=== PATIENT | female | born 1995 | race Caucasian/White ===

== ENCOUNTER 2019-01-01 12:18 | Observation (INO) ==
[2019-01-01] MEDS ORDERED: Isovue-370 500 ML BOTTLE IVP ONE (12:40)
[2019-01-01] MEDS ORDERED: Aminoglycoside Consult 1 EACH MC ONE (13:14)
[2019-01-01] MEDS ORDERED: Piperacillin/Tazobactam 3.375 GM in 0.9 % Sodium Chloride Mini Bag 100 ML IVPB ONE (13:41)
--- NOTE | 2019-01-01 13:44 | Emergency Department Note ---
Disposition Clinical Impression: Infectious tenosynovitis of left wrist extensor, Cellulitis of left arm Disposition: Admitted As Inpatient Condition: Fair Referrals: NONE,PCP [Primary Care Provider] - Forms: ED Satisfaction Letter Time of Disposition: 14:40 Extremity Problem HPI - General Chief complaint: ED Extremity Problem,Nontraumatic Stated complaint: Arm Pain Time Seen by Provider: 01/01/19 12:24 Source: patient, EMS, other Mode of arrival: EMS Limitations: no limitations Nursing Notes Reviewed: Yes Vital Signs Reviewed: Yes - History of Present Illness Pt Subjective Complaint: extremity pain, extremity swelling, joint swelling, joint pain Onset (ago): day(s) (4) Consistency: constant Injury Location: left, upper extremity Pain Scale: 6 Quality: stabbing, aching, sharp Radiation: proximal (from finger tips to shoulder but mostly around the wrist) Improves with: immobilization Worsens with: range of motion, palpation, use, other (any movement) Associated symptoms: Reports: myalgias, arthralgias, change in appearance, swelling. Denies: chest pain, shortness of breath, abdominal pain, back pain, bowel/bladder symptoms, fever, rash, redness Context: other (IVDA) - Related Data Previous Rx's Medication Instructions Recorded Diclofenac Sodium [Voltaren] 50 mg PO Q8HR #21 tablet. 12/29/18 Allergies Allergy/AdvReac Type Severity Reaction Status Date / Time tramadol Allergy Anaphylaxis Verified 12/29/18 19:49 All systems ED: reviewed and negative except as stated. Review of Systems: As Per HPI Constitutional: Denies: fever, chills, weakness, night sweats Cardiovascular: Denies: chest pain, palpitations Gastrointestinal: Denies: abdominal pain, nausea, vomiting Musculoskeletal: Reports: as per HPI, joint swelling, arthralgia. Denies: back pain, neck pain Integumentary: Denies: rash, lesions, pruritus Neurological: Denies: headache, weakness, numbness, paresthesias Hematological/Lymphatic: Denies: easy bleeding, easy bruising, lymphadenopathy Past Medical History - Past Medical History Attestation: Yes The following information was validated with the patient. Source: patient Medical history: Reports: hepatitis, IV drug use, kidney stones, migraine Surgical history: Reports: non-contributory Psychiatric history: Reports: no psych history NORMALIZER history: Reports: no NORMALIZER history - Social History Smoking Status: Current every day smoker Smokeless Tobacco Status: No Alcohol use: Reports: none Drug use: Reports: opiates, methamphetamine, IV Drug Use Physical Exam - General Limitations: no limitations General appearance: alert, other (agitated and appears to be in pain) - Head Head exam: atraumatic, normocephalic, normal inspection - Eye Eye exam: Present: normal appearance, PERRL. Absent: scleral icterus, conjunctival injection, miosis, mydriasis, periorbital swelling - ENT ENT exam: normal oropharynx, mucous membranes moist - Neck Neck exam: Present: normal inspection, trachea midline. Absent: meningismus - Expanded Neck Exam Neck exam focused ED: Absent: JVD - Respiratory Respiratory exam: Present: normal lung sounds bilaterally. Absent: respiratory distress, wheezes, stridor - Cardiovascular Cardiovascular exam: Present: regular rate, normal rhythm, normal heart sounds. Absent: systolic murmur, diastolic murmur - Extremities Exam Extremities exam: Present: normal capillary refill - Expanded Upper Extremity Exam Shoulder exam: Present: normal inspection. Absent: full ROM, tenderness, swelling, erythema Arm exam: Present: normal inspection, tenderness. Absent: swelling, ecchymosis, deformity, erythema Elbow exam: Absent: full ROM, tenderness, swelling, ecchymosis, deformity, erythema, tenderness over radial head Forearm/Wrist exam: Present: tenderness, swelling. Absent: normal inspection, full ROM, erythema Hand exam: Present: tenderness, swelling. Absent: normal inspection, full ROM, ecchymosis, erythema Neuromotor exam: Normal: wrist extension, thumb opposition, thumb IP flexion, thumb adduction, fingers 2-5 abduction Neurosensory exam: Normal: radial nerve, ulnar nerve Hand tendon exam: Normal: flexor digitorum profundus (location), flexor digitorum superficialis (location), extensor tendon (location) Vascular exam: Normal: capillary refill, radial pulse, ulnar pulse - Neurological Exam Neurological exam: Present: alert, oriented X3, CN II-XII intact. Absent: motor sensory deficit - Psychiatric Psychiatric exam: Present: normal affect, normal mood - Skin Skin exam: Present: warm, dry, intact, normal color Course Course Narrative: Patient with history of IV drug use was sent here from [facility] for evaluation of left upper extremity abnormality. She has diffuse edema and increased warmth along with exquisite tenderness to light palpation of the left upper extremity. It is primarily from the hand to the elbow. She has severe pain with slight passive or active range of motion of the fingers or wrist. She is able to tolerate movement of the elbow and shoulder. She has low-grade fever and is mildly agitated. She did allow me to palpate radial and ulnar pulses. Both are present and normal. Labs were already obtained at [place]. Blood cultures [address] of the upper extremity with IV contrast has been ordered. Vancomycin and Zosyn ordered as well. CT has been read by the radiologist as cellulitis and tenosynovitis most likely infectious. Ortho paged. Case discussed with . He has reviewed the CT images and lab findings. He recommends admission to the hospitalist. He will consult. Case discussed with the hospitalist. Patient has been accepted. Vital Signs Temperature 98.9 F 01/01/19 12:39 Pulse Rate 100 01/01/19 12:39 Respiratory Rate 15 01/01/19 12:39 Blood Pressure 107/73 01/01/19 12:39 O2 Sat by Pulse Oximetry 100 01/01/19 12:39 Temperature 98.9 F 01/01/19 12:39 Pulse Rate 100 01/01/19 12:39 Respiratory Rate 15 01/01/19 12:39 Blood Pressure 107/73 01/01/19 12:39 O2 Sat by Pulse Oximetry 100 01/01/19 12:39 Oxygen Delivery Oxygen Delivery Room Air
[2019-01-01] MEDS ORDERED: *HR* FentaNYL (PF) 100 MCG/2 ML VIAL IVP ONE (14:16)
[2019-01-01] MEDS ORDERED: Naloxone 0.4 MG/ML INJ IVP PRN (16:13)
[2019-01-01] MEDS ORDERED: Ondansetron ODT 4 MG TAB.RAPDIS SL PRN (16:13)
[2019-01-01] MEDS ORDERED: *HR* Promethazine 25 MG/ML VIAL IVP PRN (16:13)
--- NOTE | 2019-01-01 16:30 | Internal Med History&Physical ---
Date of Encounter: 01/01/19 Time of Encounter: 16:16 Internal Medicine - H&P: HPI Chief complaint: Extremity pain Admitted From: Intrahospital Transfer Plans for Post Hospital Care: Home History of present illness: Ms. Wilhelm is a 23 year old female with hx of IVDU (meth and heroin) presents as a transfer from [facility] with acute left upper extremity pain and swelling. Patient injected into medial forearm of left upper extremity 5 days prior to admission. One day later, patient developed acute pain and swelling in wrists and hand. Patient has been progressive since then and she says it is unbearable. Denies fevers or chills. Says that has been difficult to move her hand but has full sensation in the digits. Says that the only thing that made pain better so far was heat therapy. Patient uses intravenous meth and heroin. Past Med Surg Social Fam HX - Past Medical History Medical history: hepatitis, IV drug use, kidney stones, migraine Additional medical history: Hep C. Heroin IV drug user. Psychiatric history: no psych history - Past Surgical History Surgical History: non-contributory Additional surgical history: [place] teeth removed. Sinus surgery. - Social History Smoking Status: Current every day smoker Smokeless Tobacco Status: No Alcohol use: none Drug use: opiates, methamphetamine, IV Drug Use Internal Medicine - H&P: Meds Diclofenac Sodium [Voltaren] 50 mg PO Q8HR #21 tablet. 12/29/18 [Rx] Allergy/AdvReac Type Severity Reaction Status Date / Time tramadol Allergy Anaphylaxis Verified 12/29/18 19:49 Review of systems: General: Fevers / Chills / Weight loss / Night sweats Eyes: Blurry Vision / Change in Vision HENT: Ear Pain / Ear Drainage / Rhinorrhea / Throat Pain / Lymphadenopathy Cardiovascular: Chest Pain / Palpatations / Orthopnea / CURRIE / Weight gain Lungs: Dyspnea / Wheezing / Cough / Sputum production / Pleurisy Abdomen: Abdomen pain / Abdominal distention / Nausea / Vomiting / Diarrhea / Const : Dysuria / Urinary Frequency / Urinary Urgency / Hematuria Extremities: LE edema / Ext pain / Ext erythema Skin: Rashes / Abrasions / Contusions Psych: Hallucinations / Anxiety / Depression Neuro: Weakness / Numbness / Tingling / Facial Droop / Dysphagia - Constitutional Vitals: Temp Pulse Resp BP Pulse Ox 98.9 F 108 18 112/80 100 09/27/19 16:05 01/01/19 16:05 01/01/19 16:05 01/01/19 16:05 01/01/19 16:05 Exam: General: Patient crying out in pain. Will not let provider complete full exam of hand. HEENT: No erythema of posterior pharynx. No exudates. Lymphatics: No mandibular or cervical lymphadenopathy Cardiovascular: RRR. No murmurs. No chest wall tenderness. Lungs: Clear to auscelltation bilaterally. Regular chest rise. Abdomen: Non-tender. No rebound or gaurding. Nl bowel sounds. Extremities: LUE with notable swelling around the wrist and posterior aspect of the hand. Very tender to touch. Patient will not allow provider to move joints. 2+ pulses radial pulse. Skin: No rahses, abrasions, or contusions. Nl cap refill. Psych: Nl attention. A&Ox3 Neuro: claims consultant II-XII intact. 5/5 strength. Sensation to light touch and pinprick intact. Internal Med - H&P Results - Impressions ITS Impressions Upper Extremity CT 01/01/19 13:41 IMPRESSION: 1. Subcutaneous edema about the radial aspect of the left forearm and wrist, suggestive of cellulitis. 2. Fluid within the 1st dorsal extensor compartment tendon sheaths consistent with tenosynovitis, likely infectious. D/ / 01/01/2019 13:48:29 Carlos Enrique Ugalde MD / jen Interpreting Provider: Carlos Enrique Ugalde MD - Assessment and Plan (1) IVDU (intravenous drug user) Current Visit: Yes Status: Acute (2) Opioid dependence Current Visit: Yes Status: Acute Qualifiers: Substance use status: in withdrawal Qualified Code(s): F11.23 - Opioid dependence with withdrawal (3) Medical non-compliance Current Visit: Yes Status: Acute (4) Cellulitis of left arm Current Visit: Yes Status: Acute (5) Infectious tenosynovitis of left wrist extensor Current Visit: Yes Status: Acute (6) Acute wrist pain Current Visit: No Status: Acute Qualifiers: Laterality: left Qualified Code(s): M25.532 - Pain in left wrist (7) Left upper extremity swelling Current Visit: No Status: Acute - Summary of Assessment and Plan Summary of Assessment and Plan: Sepsis Infectious Tenosynovitis of Left Wrist LUE Cellulitis Acinetobacter Baumannii Bacteremia Patient with history of IV drug use and medical noncompliance presents with left upper extremity swelling and pain in the setting of meeting sepsis criteria on admission (tachycardiac, tachypnea, leukocytosis), exquisite pain in left upper extremity on exam but good peripheral pulses and seems to have intact function, recent blood cx positive for Acinetobacter Baumannii (12/07), and CT LUE with evidence of cellulitis and infectious tenosynovitis of left wrist. -Infection likely secondary to IV drug use -Unclear if this infection is related to recently injecting near the site or recently diagnosed bacteremia: Headache recent ED visit with generalized malaise Left AMA from this visit Cultures returned days later with Acinetobacter Baumannii - may have seeded left upper extremity -Orthopedic surgery evaluated site and do not plan to operate currently PLAN: - 30cc/kg IVF - Empiric vancomycin and Zosyn - Acinetobacter Baumannii sensitive to this previously - Repeat blood cultures - Orthopedic surgery following, appreciate recommendations - We will need to image any other body part that hurts to investigate for bacterial seeding - Pain control IVDU Opioid Dependence Acute Pain Acute pain will be challenging to treat but will be necessary to treat appropriately in order to prevent patient from leaving AMA. - Scheduled opioids with when necessary oral and IV opioids - Scheduled Tylenol - Heat pack to area
[2019-01-01] MEDS ORDERED: Ringers Solution, Lactated 1,000 ML IVC ONE ×2 (16:35→18:05)
[2019-01-01] MEDS ORDERED: *HR* OxyCODONE Immed Rel 15 MG TABLET PO PRN ×2 (16:35→17:06)
[2019-01-01] MEDS ORDERED: *HR* FentaNYL (PF) 100 MCG/2 ML VIAL IVP PRN (17:04)
[2019-01-01] MEDS ORDERED: Ketorolac 30 MG/ML VIAL IVP ONE (17:06)
[2019-01-01] MEDS: *HR* OxyCODONE Immed Rel 5 MG TABLET PO SCH ×2 (17:53→23:09)
[2019-01-01 20:46] LABS: Hepatitis B Surface Antigen Nonreactive (Nonreactive)
[2019-01-01 21:15] LABS: Hepatitis B Core IgM Nonreactive (Nonreactive)
[2019-01-01 21:16] LABS: Hepatitis A Antibody IgM Nonreactive (Nonreactive)
[2019-01-01 22:57] LABS: Hepatitis C Virus Antibody Reactive (Nonreactive)
[2019-01-02 02:05] LABS: Acinetobacter baumannii by PCR Not Detected (Not Detect); Candida albicans by PCR Not Detected (Not Detect); Candida glabrata by PCR Not Detected (Not Detect); Candida krusei by PCR Not Detected (Not Detect); Candida parapsilosis by PCR Not Detected (Not Detect); Candida tropicalis by PCR Not Detected (Not Detect); Enterobacter cloacae Cmplx PCR Not Detected (Not Detect); Enterobacteriaceae by PCR Not Detected (Not Detect); Enterococcus by PCR Not Detected (Not Detect); Escherichia coli by PCR Not Detected (Not Detect); Klebsiella oxytoca by PCR Not Detected (Not Detect); Klebsiella pneumoniae by PCR Not Detected (Not Detect); Proteus by PCR Not Detected (Not Detect); Pseudomonas aeruginosa by PCR Not Detected (Not Detect); Serratia marcescens by PCR Not Detected (Not Detect); Staphylococcus aureus by PCR Not Detected (Not Detect); Staphylococcus by PCR Not Detected (Not Detect); Streptococcus agalactiae(B)PCR Not Detected (Not Detect); Streptococcus by PCR Not Detected (Not Detect); Streptococcus pneumoniae PCR Not Detected (Not Detect); Streptococcus pyogenes (A) PCR Not Detected (Not Detect); blaKPC Carbapenem-Resist Gene Not Detected (Not Detect); mecA Methicillin-Resist Gene Not Detected (Not Detect); vanA/B Vancomycin-Resist Genes Not Detected (Not Detect)
[2019-01-02 03:49] LABS: Amphetamine Screen,Urine Positive ng/mL (Cutoff=1000); Barbiturate Screen,Urine Negative ng/mL (Cutoff=200); Benzodiazepines Screen,Urine Positive ng/mL (Cutoff=200); Cannabinoid Screen,Urine Negative ng/mL (Cutoff = 50); Cocaine Screen,Urine Negative ng/mL (Cutoff= 300); Opiate Screen,Urine Positive ng/mL (Cutoff=300); Phencyclidine Screen,Urine Negative ng/mL (Cutoff=25)
[2019-01-02] MEDS: *HR* OxyCODONE Immed Rel 5 MG TABLET PO SCH ×2 (04:59→12:32)
--- NOTE | 2019-01-02 07:53 | Orthopedic Consult Note ---
Date of Encounter: 01/02/19 Time of Encounter: 07:51 Assessment and Plan (1) Cellulitis of left arm Current Visit: Yes Status: Acute Treatment plan and recommendations were discussed with patient. She has had improvement since starting the IV antibiotics will continue on these for now. Members elevation of the wrist. Will continue to follow exam for possible I&D if symptoms continue or worsen. Nothing by mouth at midnight tonight for reevaluation in the morning. History of Present Illness HPI: Ms. Wilhelm is a 23 year old female with hx of IVDU (meth and heroin) presents as a transfer from [facility] with acute left upper extremity pain and swelling. Patient injected into medial forearm of left upper extremity 5 days prior to admission and has been having acute pain and swelling in wrist and h and. She was admitted yesterday and started on IV antibiotics with improvement in her pain, currently having pain mostly in the wrist with range of motion. Past Med Surg Social Fam HX - Past Medical History Medical history: hepatitis, IV drug use Additional medical history: Hep C. Heroin IV drug user. Psychiatric history: no psych history - Past Surgical History Surgical History: no surgical history Additional surgical history: [place] teeth removed. Sinus surgery. - Social History Smoking Status: Current every day smoker Packs per day: 1 Smokeless Tobacco Status: No Alcohol use: none Drug use: opiates, methamphetamine, IV Drug Use Medications and Allergies Diclofenac Sodium [Voltaren] 50 mg PO Q8HR #21 tablet. 12/29/18 [Rx] Allergy/AdvReac Type Severity Reaction Status Date / Time tramadol Allergy Anaphylaxis Verified 12/29/18 19:49 All Systems Reviewed: The remainder of the systems were reviewed and are negative except as noted in the HPI Physical Exam - Constitutional Vitals: Temp Pulse Resp BP Pulse Ox 99.1 F 96 16 103/67 98 01/02/19 07:37 01/02/19 07:37 01/02/19 07:37 01/02/19 07:37 01/02/19 07:37 Exam: Consult Exam: Constitutional -Vitals reviewed -The patient is well developed and well nourished. -Mood is pleasant. -The patient is well groomed. Psychiatric -The patient is fully alert and oriented x 3. Respiratory: -Respiratory effort normal Abdomen: -Soft abdomen -Non tender -Non distended: Left upper extremity: -No deformities. The overlying skin is intact. Tenderness palpation over the wrist volarly and dorsally. Pain with range of motion of the wrist. No areas of fluctuance or induration. -No significant pain with passive motion of the shoulder, elbow, and fingers within the limits of the bed. -Able to make an "OK" sign, cross the index and long fingers, and extend the thumb. -Sensation grossly intact to light touch throughout the median, radial, and ulnar distributions. -Radial pulse is present; Fingers have good capillary refill. Right upper extremity: -No deformities. The overlying skin is intact. No obvious signs of acute trauma. -No tenderness to palpation throughout. -No significant pain with passive motion of the shoulder, elbow, wrist, and fingers within the limits of the bed. -Able to make an "OK" sign, cross the index and long fingers, and extend the thumb. -Sensation grossly intact to light touch throughout the median, radial, and ulnar distributions. -Radial pulse is present; Fingers have good capillary refill. Left lower extremity: -No deformities. The overlying skin is intact. No obvious signs of acute trauma. -No tenderness to palpation throughout. -No pain with passive motion of the hip, knee, ankle, and toes within the limits of the bed. -No pain with axial loading of the thigh. -Able to dorsiflex and plantarflex the ankle and toes. -Sensation is grossly intact to light touch throughout the sural, saphenous, superficial peroneal, and deep peroneal distributions. -Toes have good capillary refill. Right lower extremity: -No deformities. The overlying skin is intact. No obvious signs of acute trauma. -No tenderness to palpation throughout. -No pain with passive motion of the hip, knee, ankle, and toes within the limits of the bed. -No pain with axial loading of the thigh. -Able to dorsiflex and plantarflex the ankle and toes. -Sensation is grossly intact to light touch throughout the sural, saphenous, superficial peroneal, and deep peroneal distributions. -Toes have good capillary refill. Results - Labs Labs: Abnormal lab results Urine Opiates Screen Positive ng/mL (Swhqml=683) H 01/02/19 03:10 Ur Amphetamines Screen Positive ng/mL (Pykkmz=[id number]) H 01/02/19 03:10 U Benzodiazepines Scrn Positive ng/mL (Ttypsr=196) H 01/02/19 03:10 Hepatitis C Ab Screen Reactive (Nonreactive) H 01/01/19 19:53 All other labs normal. - Diagnostic results Wrist/Hand CT: report reviewed, image reviewed (Cellulitis present with no obvious abscess) Consult Discharge Plan - Plan Referrals: NONE,PCP [Primary Care Provider] -
[2019-01-02] MEDS ORDERED: ceFAZolin 2,000 MG in Water for inj. (sterile) 20 ML IVP ONE (08:51)
[2019-01-02 09:45] LABS: Basophils # 0.1 K/mcL (0.0-0.2); Basophils % 0.5 %; Eosinophils % 0.2 %; Hematocrit 34.6 % (35.3-44.9); Hemoglobin 11.2 g/dL (11.5-15.4); Immature Granulocytes % 0.3 % (0-4); Lymphocytes # 1.8 K/mcL (0.6-4.6); Lymphocytes % 13.2 %; Mean Corpuscular HGB Conc 32.4 g/dL (31.6-35.5); Mean Corpuscular Hemoglobin 27.7 pg (28.0-33.3); Mean Corpuscular Volume 85.6 fL (83.0-100.0); Mean Platelet Volume 9.4 fL (9.4-12.4); Monocytes # 0.6 K/mcL (0.0-1.3); Monocytes % 4.7 %; Neutrophils # 10.9 K/mcL (1.6-8.9); Platelet Count 345 K/mcL (140-400); Red Blood Count 4.04 M/mcL (3.82-4.97); Red Cell Distribution Width 13.5 % (11.5-14.5); Segmented Neutrophils % 81.1 %; White Blood Count 13.5 K/mcL (4.3-11.1)
[2019-01-02 09:59] LABS: BUN/Creatinine Ratio 13 (6-26); Blood Urea Nitrogen 7 mg/dL (6-20); Calcium 8.7 mg/dL (8.6-10.3); Carbon Dioxide 23 mEq/L (23-29); Chloride 107 mEq/L (98-107); Glucose 221 mg/dL (70-105); Osmolality,Calculated 281 (280-300); Potassium 3.4 mEq/L (3.5-5.1); Sodium 133 mEq/L (136-145); eGFR For African Americans > 60 (> 60); eGFR For Non-African Americans > 60 (> 60)
[2019-01-02 11:39] VITALS: BP 101/66
--- NOTE | 2019-01-02 13:19 | Discharge Summary ---
Orders not resulted at time of discharge: Pending orders 01/01/19 13:56 Culture,Blood [BC] Stat Date of Encounter: 01/02/19 Time of Encounter: 13:17 - Discharge Diagnosis (1) Sepsis Priority: Primary Status: Acute Qualifiers: Sepsis type: sepsis due to unspecified organism Sepsis acute organ dysfunction status: without acute organ dysfunction Qualified Code(s): A41.9 - Sepsis, unspecified organism (2) IVDU (intravenous drug user) Priority: Secondary Status: Acute (3) Opioid dependence Priority: Secondary Status: Acute Qualifiers: Substance use status: in withdrawal Qualified Code(s): F11.23 - Opioid dependence with withdrawal (4) Medical non-compliance Priority: Secondary Status: Acute (5) Cellulitis of left arm Priority: Secondary Status: Acute (6) Infectious tenosynovitis of left wrist extensor Priority: Secondary Status: Acute (7) Acute wrist pain Priority: Secondary Status: Acute Qualifiers: Laterality: left Qualified Code(s): M25.532 - Pain in left wrist (8) Left upper extremity swelling Priority: Secondary Status: Acute (9) Gram-negative bacteremia Priority: Secondary Status: Acute Hospital course: Ms. Wilhelm is a 23 year old female with history of IV drug use and medical noncompliance presented with left upper extremity pain and swelling meeting sepsis criteria on admission. CT LUE had evidence of cellulitis and infectious tenosynovitis of left wrist. Patient was started on IV antibiotics and orthosis consulted, who suggested conservative management to begin with. By day 2 of admission patient left AMA. Patient had positive blood cultures for Acinetobacter Baumannii during previous recent encounter 12/07 that it does not appear the patient was treated for. Repeat blood cultures this admission with PCR negative for this. May have just been transient bacteremia from IV drug use although abnormal organism for this. Patient also found to have hepatitis C from IV drug use this admission. Discharge discussed with: patient - Time Spent with Patient Total time spent providing and/or coordinating discharge services: 20 minutes Time spent: Less than 30 minutes - Discharge Medications Prescriptions: No Action Diclofenac Sodium [Voltaren] 50 mg PO Q8HR #21 tablet. Home Medications: Diclofenac Sodium [Voltaren] 50 mg PO Q8HR #21 tablet. 12/29/18 [Rx] Allergies/Adverse Reactions: Allergy/AdvReac Type Severity Reaction Status Date / Time tramadol Allergy Anaphylaxis Verified 12/29/18 19:49 Date of admission: 01/01/19 15:14 Primary care physician: PCP NONE - Constitutional Vitals: Temp Pulse Resp BP Pulse Ox 98.9 F 83 16 101/66 94 01/02/19 11:35 01/02/19 11:35 01/02/19 11:35 01/02/19 11:35 01/02/19 11:35 Exam: She left AMA before she could be examined - Patient Status Disposition: Left Against Medical Advice Functional capacity at discharge: independent ambulation Overall status at discharge: patient is not back to baseline - Discharge Instructions Follow Up With: NONE,PCP [Primary Care Provider] - - Diet and Activity Activity: increase activity as tolerated Diet: advance to your usual diet
== END 2019-01-02 13:15 | disposition left against medical advice (07) ==
LOC: EMEROOARM 12:18 → 3NENU 12:18
PROVIDERS: ADMIT Pharmacist; ATTEND Pharmacist